=== PATIENT | male | born 1950 | race Caucasian/White ===

== ENCOUNTER 2020-06-14 23:48 | Emergency (ER) | payer OTHER ==
[~2020-06-14] VITALS: Ht 180.3 cm; Wt 102.1 kg
[2020-06-14 23:50] VITALS: BP 157/83
== END 2020-06-15 00:32 ==
LOC: ER 23:50
DX: J34.89 Other specified disorders of nose and nasal sinuses (principal); Y08.89XA Assault by other specified means, initial encounter; Y93.89 Activity, other specified; Y92.89 Other specified places as the place of occurrence of the external cause; Y99.8 Other external cause status
CPT/HCPCS: 99283; A6403